=== PATIENT | female | born 1980 | race Caucasian/White ===

== ENCOUNTER 2018-08-17 20:15 | Observation (INO) | payer MEDICAID ==
[2018-08-17 20:49] LABS: PLATELET COUNT 296 10^3/uL (150-400)
--- NOTE | 2018-08-17 21:34 | EDPHY ---
General Time Seen by Provider: 08/17/18 20:33 Narrative: CLINICAL IMPRESSION: Abdominal pain, flank pain, nausea, vomiting ASSESSMENT/PLAN: 38-year-old female presents to the emergency department 1 day of generalized lower abdominal pain, dysuria, flank pain, nausea, vomiting and fever. Patient arrives tachycardic, afebrile, nonseptic and nontoxic appearing. Generalized abdominal discomfort worse on the right, no guarding, rigidity or distention. She has a significant leukocytosis of 21 with left shift. No other electrolyte imbalance, renal insufficiency or metabolic disturbance. Urine shows pyuria, trace bacteriuria, and hematuria. Pelvic ultrasound showing normal pelvic organs, IUD in place, no evidence of ovarian cyst, ovarian torsion, salpingitis or TOA. CT scan of the abdomen shows in the appendix measuring 7 mm which is the upper end of normal with no associated inflammatory changes, not interpreted by radiologist as acute appendicitis. Patient was seen and examined by Dr. Gusman. It was felt that she would be best served with admission, IV antibiotics, close observation. Discussed with hospitalist who will see the patient in the ED. Patient agreeable to this plan. Rocephin ordered in the ED. Patient stabilized for admission DIFFERENTIAL DX: Abdominal pain includes but not limited to urinary tract infection, pyelonephritis, infection, ectopic , salpingitis, TOA, ovarian torsion, ovarian cyst, endometriosis, uterine fibroids, acute appendicitis, acute diverticulitis, small-bowel obstruction, constipation ED PROCEDURES: See lab and/or imaging results below ED COURSE: 10:30 p.m. ultrasound results discussed with Dr. Love. No abnormal findings. Appendix measuring upper end of normal at 7 mm, non compressing although non fully visualized. Patient requesting pain medication and nausea medication. I discussed and recommended CT scan which she agrees to. Urine appears consistent with possible mild UTI as well. 12:00 A.M.:. Patient reassessed, seen by Dr. Gusman as well, continues to have lower abdominal pain as well as bilateral flank pain, nausea and vomiting. Feeling generally unwell. Will treat for pyelonephritis with ceftriaxone, urine culture ordered, will plan to admit. CHIEF COMPLAINT: Abdominal pain, nausea, vomiting, fever HPI: 38-year-old female with reported past medical history of migraines presents to the emergency department with approximately 18 hr of generalized lower abdominal pain associated with nausea, 1 episode of nonbilious nonbloody vomiting, and fevers. Patient had documented temperature of 100 degrees at home. She did not take anything for this. She had influenza 2 weeks ago and has been feeling significantly better. No UTI symptoms, flank pain, diarrhea or bloody stools. She checked her IUD strings and reported no pain or cervical pain. No abnormal vaginal bleeding. She had a gynecologic exam approximately 1 week ago was told that she had a yeast infection but did not take Diflucan until yesterday. She did not have any abdominal pain yesterday. No ill family members at home. No recent antibiotics. No prior abdominal surgery. PAST MEDICAL HISTORY: Migraines See nurse/triage notes for additional history if applicable Pertinent Past Surgical History: None reported Family History: Noncontributory Social History: , here with her , nonsmoker REVIEW OF SYSTEMS: All other systems negative Constitutional: Positive for fever, chills an appetite change Eyes: No discharge, vision change ENT: No sore throat, congestion, ear pain. Cardiovascular: No chest pain, positive for palpitations. Respiratory: No cough, no shortness of breath. Gastrointestinal: Positive for abdominal pain and vomiting diarrhea.] Genitourinary: No hematuria, dysuria, flank pain, pelvic pain Skin: No rashes, color change. PHYSICAL EXAM: General Appearance: Alert, oriented, appropriate, cooperative, NAD, well hydrated, non-toxic appearing, tachycardic, afebrile no hypoxia. HEENT: Oropharynx clear is no erythema or exudates, no tonsillar hypertrophy or asymmetry. Dentition without abnormality.] Respiratory: There are no retractions, lungs are clear to auscultation. Cardiac: Tachycardic, regular rhythm, no murmurs or gallops. Gastrointestinal: Abdomen is soft, generalized lower abdominal tenderness worse on the right, bowel sounds normal, no masses/hernia, no rigidity, mild guarding no focal peritoneal findings. Neurological: [ Alert and oriented x 3, CN 2-12 grossly intact Skin: Warm, dry, no rashes, no nodules on palpation. MEDICAL DECISION MAKING: Patient was seen independently. Secondary supervising physician at time of evaluation was Dr. Naseem Neal. Diagnosis: Lower abdominal pain, nausea, vomiting, possible early pyelonephritis versus early appendicitis. New, requires workup Summary: See Assessment and Plan for summary of ED visit Clinical lab tests: ordered / reviewed. Independent visualization of images, tracing, or specimens: Yes. Decision to obtain medical records or history from someone other than the patient: No Review / Summarize previous medical records: None available Discussed patient with another provider: Dr. Love, Dr. Gusman, hospitalist Patient Progress: Stable for admission . - Diagnostics Imaging Results: Imaging Impressions Pelvic/Renal Ultrasound 08/17/18 21:23 Impression: Normal ultrasound pelvis. Abdomen Ultrasound 08/17/18 21:24 Impression: Indeterminate findings for appendicitis as the appendix is visualized and upper limits of normal in size. Results called and discussed with Gerry Garcia PA-C, at 08/17/2018 22:36. Abdomen CT 08/17/18 22:34 Impression: No CT findings for appendicitis or diverticulitis. Results called and discussed with Gerry Garcia at 08/17/2018 23:42. - History Smoking Status: Never smoked - Objective Vital Signs: Initial Vital Signs Temperature (C) 36.7 C 08/17/18 20:24 Heart Rate 108 H 08/17/18 20:24 Respiratory Rate 16 08/17/18 20:24 Blood Pressure 104/65 08/17/18 20:24 O2 Sat (%) 97 08/17/18 20:24 O2 Delivery Mode Room Air Allergies/Adverse Reactions: No Known Allergies Allergy (Unverified 08/28/09 21:00) Home Medications: Medication Instructions Recorded Multivitamins Tablet 1 tab PO DAILY 05/18/13 Ibuprofen [Motrin (*)] 600 mg PO Q6 PRN #0 tab 07/18/15 Laboratory Results: Laboratory Results 08/17/18 20:40 08/17/18 20:40 08/17/18 08/17/18 08/17/18 21:00 20:40 20:40 WBC RBC Hgb Hct MCV MCH MCHC RDW Plt Count MPV Neut % (Auto) Lymph % (Auto) [place] % (Auto) Eos % (Auto) Baso % (Auto) Nucleat RBC Rel Count Absolute Neuts (auto) Absolute Lymphs (auto) Absolute Monos (auto) Absolute Eos (auto) Absolute Basos (auto) Absolute Nucleated RBC Immature Gran % Immature Gran # Sodium 136 mEq/L mEq/L (135-145) Potassium 3.6 mEq/L mEq/L (3.5-5.2) Chloride 102 mEq/L mEq/L (97-110) Carbon Dioxide 23 mEq/l mEq/l (22-31) Anion Gap 11 mEq/L mEq/L (6-14) BUN 13 mg/dL mg/dL (7-23) Creatinine 0.6 mg/dL mg/dL (0.6-1.0) Estimated GFR > 60 Glucose 117 mg/dL H mg/dL (70-100) Calcium 9.3 mg/dL mg/dL (8.5-10.4) Beta HCG, Qual NEGATIVE Urine Color COLORLESS Urine Appearance CLEAR Urine pH 7.0 (5.0-7.5) Ur Specific [place] 1.001 L (1.002-1.030) Urine Protein NEGATIVE (NEGATIVE) Urine Ketones NEGATIVE (NEGATIVE) Urine Blood 2+ H (NEGATIVE) Urine Nitrate NEGATIVE (NEGATIVE) Urine Bilirubin NEGATIVE (NEGATIVE) Urine Urobilinogen NEGATIVE EU EU (0.2-1.0) Ur Leukocyte Esterase 3+ H (NEGATIVE) Urine RBC 1-3 /hpf /hpf (0-3) Urine WBC 10-15 /hpf H /hpf (0-3) Ur Epithelial Cells TRACE /lpf /lpf (NONE-1+) Urine Bacteria TRACE /hpf H /hpf (NONE SEEN) Urine Glucose NEGATIVE (NEGATIVE) 08/17/18 20:40 WBC 21.31 10^3/uL H 10^3/uL (3.80-9.50) RBC 4.13 10^6/uL L 10^6/uL (4.18-5.33) Hgb 12.6 g/dL g/dL (12.6-16.3) Hct 37.5 % L % (38.0-47.0) MCV 90.8 fL fL (81.5-99.8) MCH 30.5 pg pg (27.9-34.1) MCHC 33.6 g/dL g/dL (32.4-36.7) RDW 11.8 % % (11.5-15.2) Plt Count 296 10^3/uL 10^3/uL (150-400) MPV 10.3 fL fL (8.7-11.7) Neut % (Auto) 91.2 % H % (39.3-74.2) Lymph % (Auto) 5.0 % L % (15.0-45.0) [place] % (Auto) 3.1 % L % (4.5-13.0) Eos % (Auto) 0.1 % L % (0.6-7.6) Baso % (Auto) 0.1 % L % (0.3-1.7) Nucleat RBC Rel Count 0.0 % % (0.0-0.2) Absolute Neuts (auto) 19.43 10^3/uL H 10^3/uL (1.70-6.50) Absolute Lymphs (auto) 1.07 10^3/uL 10^3/uL (1.00-3.00) Absolute Monos (auto) 0.65 10^3/uL 10^3/uL (0.30-0.80) Absolute Eos (auto) 0.03 10^3/uL 10^3/uL (0.03-0.40) Absolute Basos (auto) 0.02 10^3/uL 10^3/uL (0.02-0.10) Absolute Nucleated RBC 0.00 10^3/uL 10^3/uL (0-0.01) Immature Gran % 0.5 % % (0.0-1.1) Immature Gran # 0.11 10^3/uL H 10^3/uL (0.00-0.10) Sodium Potassium Chloride Carbon Dioxide Anion Gap BUN Creatinine Estimated GFR Glucose Calcium Beta HCG, Qual Urine Color Urine Appearance Urine pH Ur Specific [place] Urine Protein Urine Ketones Urine Blood Urine Nitrate Urine Bilirubin Urine Urobilinogen Ur Leukocyte Esterase Urine RBC Urine WBC Ur Epithelial Cells Urine Bacteria Urine Glucose Medications Given: Discontinued Medications Fentanyl (Sublimaze) 50 mcg IVP EDNOW ONE Stop: 08/17/18 22:34 Last Admin: 08/17/18 22:38 Dose: 25 mcg Sodium Chloride (Ns) 1,000 mls @ 0 mls/hr IV ONCE ONE; Wide Open PRN Reason: Protocol Stop: 08/17/18 22:28 Last Admin: 08/17/18 22:30 Dose: 1,000 mls Sodium Chloride (Ns) 1,000 mls @ 0 mls/hr IV ONCE ONE PRN Reason: Wide Open Stop: 08/18/18 00:04 Last Admin: 08/18/18 00:19 Dose: 1,000 mls Ceftriaxone Sodium/Dextrose (Rocephin 1 Gm (Premix)) 50 mls @ 100 mls/hr IV EDNOW ONE PRN Reason: Protocol Stop: 08/18/18 00:38 Last Admin: 08/18/18 00:19 Dose: 50 mls Sodium Chloride (Ns) 1,000 mls @ 0 mls/hr IV EDNOW ONE; Wide Open PRN Reason: Protocol Stop: 08/18/18 00:10 Last Admin: 08/18/18 00:15 Dose: Not Given Ondansetron HCl (Zofran) 4 mg IVP EDNOW ONE Stop: 08/17/18 22:38 Last Admin: 08/17/18 22:39 Dose: 4 mg Departure - Departure Disposition: [facility] Acute Clinical Impression: Pyelonephritis Condition: Fair
[2018-08-17] MEDS ORDERED: NS 1,000 ML IV ONE (22:27)
[2018-08-17] MEDS ORDERED: fentaNYL 100 MCG/2 ML INJ IVP ONE (22:33)
[2018-08-17] MEDS ORDERED: fentaNYL 100 MCG/2 ML INJ ONE (22:33)
[2018-08-17] MEDS ORDERED: ONDANSETRON 4 MG/2 ML VIAL IVP ONE (22:37)
[2018-08-17] MEDS ORDERED: ONDANSETRON 4 MG/2 ML VIAL ONE (22:37)
[2018-08-17] MEDS ORDERED: IOPAMIDOL (ISOVUE-300) 100 ML BTL ONE (22:50)
[2018-08-18] MEDS ORDERED: NS 1,000 ML IV ONE ×2 (00:03→00:09)
[2018-08-18] MEDS ORDERED: oxyCODONE IR 5 MG TAB PO PRN (00:34)
[2018-08-18] MEDS ORDERED: HYDROmorphONE/DILAUDID 1 MG/ML INJ IVP PRN (00:34)
[2018-08-18] MEDS ORDERED: ONDANSETRON DISINTEGRATING 4 MG TAB PO PRN (00:34)
[2018-08-18] MEDS ORDERED: ONDANSETRON 4 MG/2 ML VIAL IVP PRN (00:34)
[2018-08-18] MEDS ORDERED: NS 1,000 ML IV SCH (00:45)
--- NOTE | 2018-08-18 01:10 | PDGENHP ---
History and Physical - Chief Complaint Abdominal pain - History of Present Illness 38 yo F w/ hx of migraines presents with abdominal pain and nausea. The patient developed symptoms starting this morning. She first noticed lower abdominal pain. She then developed bilateral flank pain, nausea, and chills. She thinks she may have some urgency but denies dysuria. In the ED her evaluation is notable for elevated WBC and essentially normal CT scan of the abdomen. Her appendix does not appear infected. On my exam she has supra-pubic tenderness but overall a reassuring examination. She is being admitted for observation and treatment of suspected UTI. Case discussed with ED physician Dr. Luis; records reviewed and summarized above. History Information - Allergies/Home Medication List Allergies/Adverse Reactions: No Known Allergies Allergy (Unverified 08/28/09 21:00) Home Medications: Multivitamins Tablet 1 tab PO DAILY 05/18/13 [Last Taken Unknown] I have personally reviewed and updated: family history, medical history - Past Medical History migraines - Surgical History Additional surgical history: Patellar surgery - Family History Additional family history: Mother has colitis - Social History Smoking Status: Never smoked Review of Systems Review of Systems: ROS: 10pt was reviewed & negative except for what was stated in HPI & below Physical Exam Physical Exam: Temp Pulse Resp BP Pulse Ox 37.4 C 99 16 109/69 99 08/17/18 22:20 08/17/18 22:20 08/17/18 22:20 08/17/18 22:20 08/17/18 22:20 Constitutional: appears nourished, uncomfortable Eyes: PERRL, EOMI Ears, Nose, Mouth, Throat: moist mucous membranes, no oral mucosal ulcers Cardiovascular: regular rate and rhythym, systolic murmur Respiratory: no respiratory distress, clear to auscultation Gastrointestinal: normoactive bowel sounds, tenderness (Supra-pubic) Skin: warm, normal color Musculoskeletal: full muscle strength, no muscle tenderness Neurologic: AAOx3, CN II-XII Intact Psychiatric: interacting appropriately, not anxious Lab Data & Imaging Review 08/17/18 20:40 08/17/18 20:40 WBC 21.31 10^3/uL (3.80-9.50) H 08/17/18 20:40 RBC 4.13 10^6/uL (4.18-5.33) L 08/17/18 20:40 Hgb 12.6 g/dL (12.6-16.3) 08/17/18 20:40 Hct 37.5 % (38.0-47.0) L 08/17/18 20:40 MCV 90.8 fL (81.5-99.8) 08/17/18 20:40 MCH 30.5 pg (27.9-34.1) 08/17/18 20:40 MCHC 33.6 g/dL (32.4-36.7) 08/17/18 20:40 RDW 11.8 % (11.5-15.2) 08/17/18 20:40 Plt Count 296 10^3/uL (150-400) 08/17/18 20:40 MPV 10.3 fL (8.7-11.7) 08/17/18 20:40 Neut % (Auto) 91.2 % (39.3-74.2) H 08/17/18 20:40 Lymph % (Auto) 5.0 % (15.0-45.0) L 08/17/18 20:40 [place] % (Auto) 3.1 % (4.5-13.0) L 08/17/18 20:40 Eos % (Auto) 0.1 % (0.6-7.6) L 08/17/18 20:40 Baso % (Auto) 0.1 % (0.3-1.7) L 08/17/18 20:40 Nucleat RBC Rel Count 0.0 % (0.0-0.2) 08/17/18 20:40 Absolute Neuts (auto) 19.43 10^3/uL (1.70-6.50) H 08/17/18 20:40 Absolute Lymphs (auto) 1.07 10^3/uL (1.00-3.00) 08/17/18 20:40 Absolute Monos (auto) 0.65 10^3/uL (0.30-0.80) 08/17/18 20:40 Absolute Eos (auto) 0.03 10^3/uL (0.03-0.40) 08/17/18 20:40 Absolute Basos (auto) 0.02 10^3/uL (0.02-0.10) 08/17/18 20:40 Absolute Nucleated RBC 0.00 10^3/uL (0-0.01) 08/17/18 20:40 Immature Gran % 0.5 % (0.0-1.1) 08/17/18 20:40 Immature Gran # 0.11 10^3/uL (0.00-0.10) H 08/17/18 20:40 Sodium 136 mEq/L (135-145) 08/17/18 20:40 Potassium 3.6 mEq/L (3.5-5.2) 08/17/18 20:40 Chloride 102 mEq/L (97-110) 08/17/18 20:40 Carbon Dioxide 23 mEq/l (22-31) 08/17/18 20:40 Anion Gap 11 mEq/L (6-14) 08/17/18 20:40 BUN 13 mg/dL (7-23) 08/17/18 20:40 Creatinine 0.6 mg/dL (0.6-1.0) 08/17/18 20:40 Estimated GFR > 60 08/17/18 20:40 Glucose 117 mg/dL (70-100) H 08/17/18 20:40 Calcium 9.3 mg/dL (8.5-10.4) 08/17/18 20:40 Beta HCG, Qual NEGATIVE 08/17/18 20:40 Urine Color COLORLESS 08/17/18 21:00 Urine Appearance CLEAR 08/17/18 21:00 Urine pH 7.0 (5.0-7.5) 08/17/18 21:00 Ur Specific [place] 1.001 (1.002-1.030) L 08/17/18 21:00 Urine Protein NEGATIVE (NEGATIVE) 08/17/18 21:00 Urine Ketones NEGATIVE (NEGATIVE) 08/17/18 21:00 Urine Blood 2+ (NEGATIVE) H 08/17/18 21:00 Urine Nitrate NEGATIVE (NEGATIVE) 08/17/18 21:00 Urine Bilirubin NEGATIVE (NEGATIVE) 08/17/18 21:00 Urine Urobilinogen NEGATIVE EU (0.2-1.0) 08/17/18 21:00 Ur Leukocyte Esterase 3+ (NEGATIVE) H 08/17/18 21:00 Urine RBC 1-3 /hpf (0-3) 08/17/18 21:00 Urine WBC 10-15 /hpf (0-3) H 08/17/18 21:00 Ur Epithelial Cells TRACE /lpf (NONE-1+) 08/17/18 21:00 Urine Bacteria TRACE /hpf (NONE SEEN) H 08/17/18 21:00 Urine Glucose NEGATIVE (NEGATIVE) 08/17/18 21:00 Imaging Review: Imaging Impressions Pelvic/Renal Ultrasound 08/17/18 21:23 Impression: Normal ultrasound pelvis. Abdomen Ultrasound 08/17/18 21:24 Impression: Indeterminate findings for appendicitis as the appendix is visualized and upper limits of normal in size. Results called and discussed with Gerry Garcia PA-C, at 08/17/2018 22:36. Abdomen CT 08/17/18 22:34 Impression: No CT findings for appendicitis or diverticulitis. Results called and discussed with Gerry Garcia at 08/17/2018 23:42. Assessment & Plan Assessment: 38 yo F presents with likely UTI.. Plan: 1. Presumed UTI - Presents with supra-pubic pain, flank pain, nausea, and elevated WBC. UA is mildly infectious appearing. Appendix does not appear infected on CT scan(personally reviewed/interpreted). - Admit for observation - CTX 1 g qD - Urine culture pending - Pain control PRN 2. Nausea - Likely related to above - Clear liquid diet, ADAT, mIVF - Anti-emetics PRN Diet - Clears, mIVF, ADAT Code - Full Ppx - Low risk, ambulate TID Dispo - Admit under observation status
[2018-08-18] MEDS: ACETAMINOPHEN 325 MG TAB PO PRN ×2 (01:24→13:27)
[2018-08-18 06:58] LABS: PLATELET COUNT 216 10^3/uL (150-400)
[2018-08-18 11:31] VITALS: BP 101/63
--- NOTE | 2018-08-18 14:58 | ASDISCHSUM ---
Discharge Information Plan Status:Home with No Needs Medically Cleared to Leave:08/17/2018 Discharge Date:08/17/2018 CM D/C Disposition: ADT D/C Disposition:Home, Routine, Self-Care Projected Discharge Date:08/18/2018 12:00 AM Transportation at D/C:Family Discharge Delay Reason: Follow-Up Date:08/18/2018 12:00 AM Discharge Slot:2 - 12:01 pm - 18:00 pm Final Diagnosis:UTI Placement Information Patient Contact Information Contact Name:MARTIN Relationship: Address:[address] City:[place] Alternate Phone: [facility]/Zip Code:[place] [address] Email: Financial Information Financial Class:Medicaid Primary Plan Desc:[employer] SALES Primary Plan Number:[id number] Secondary Plan Desc: Secondary Plan Number: Assessment Information Intervention Information
--- NOTE | 2018-08-18 15:00 | ASMTCMCOM ---
CM Note CM Note Notes: Case Management Chart Review for Discharge Support: 38 year old female presented to 18 hr generalized lower abdominal pain, nausea, vomiting, and diarrhea. at bedside. Patient admitted under observation for presumed UTI. CM discussed with RNSylwia, patient likely to discharge today, home independent with family support. D/C Plan: Independent. Date Signed: 08/18/2018 02:59 PM Electronically Signed By:Hayley Rodriguez
--- NOTE | 2018-08-19 06:56 | PDDCSUM ---
Discharge Summary Discharge Summary: Ольга Winkler is a 38 year old female admitted with pyelonephritis. There was no concerns for abscess but her white count was over [address] scan there was some "fullness" of her appendix so the decision was made to watch her overnight. With some IVF and abx she felt completely better. Her diet was advanced and she had no further pain. she requested to go home and so she was discharged to complete a course of abx for her UTI with cipro Discharge Diagnosis acute complicated UTI
== END 2018-08-18 15:06 | disposition home or self-care (01) ==
LOC: F3E 08-18 02:09
PROVIDERS: ADMIT Student in an Organized Health Care Education/Training Program; ATTEND Internal Medicine
DX: N10 Acute pyelonephritis (principal); E86.0 Dehydration
CPT/HCPCS: 74177; 76705; 76856; G0378; 96365; J0696; J2405; J3010; Q9967

== ENCOUNTER → 2018-11-15 | Outpatient (CLI) | payer MEDICAID | LOC: EDSTATUS 07:54 → FIMAGING 10:01 | PROVIDERS: ATTEND Physician Assistant | DX: R05 Cough (principal); R07.9 Chest pain, unspecified ==